=== PATIENT | male | born 1955 | race Two or more races ===

== ENCOUNTER 2020-12-02 15:58 | Emergency (ER) | payer OTHER ==
[~2020-12-02] VITALS: Ht 170.2 cm; Wt 80.3 kg
--- NOTE | 2020-12-02 16:33 | RAD ---
XR SHOULDER_LEFT 2+ VIEWS 12/02/2020 4:18 PM INDICATION: Left shoulder pain after feeling something pop COMPARISON: None available. TECHNIQUE: 3 views of the left shoulder are provided. FINDINGS/ IMPRESSION: There is no acute fracture or dislocation. Joint spaces are maintained. Subcortical cystic change ghislaine ntified along the superolateral humeral head. Bone mineralization is within normal limits. Regional s oft tissues are within normal limits. There is no soft tissue gas or osseous erosion. No radiopaque f oreign body. Electronically signed by: Rossy Hidalgo MD (12/02/2020 4:30 PM) [id number]
[2020-12-02] MEDS ORDERED: NAPR-695 PO (16:42)
--- NOTE | 2020-12-02 16:43 | ED.ADGEN ---
Past Medical History Past Medical History: No Pertinent History Past Surgical History: Other Additional Past Surgical Histo: LEFT ROTATOR CUFF Smoking Status: Never Smoker Alcohol Use: Occasionally General Adult EDM: Chief Complaint: SHOULDER INJURY HPI: HPI: Patient is a 65 year old male who presents emergency department with complaints of left shoulder pain after feeling something pop in his left shoulder when he was putting equipment away at work this afternoon. Patient denies any decreased range of motion, numbness, tingling, or weakness of the affected extremity. He states he is dominantly right-handed. He denies any fever, cough, sore throat, body aches, fatigue, chest pain, palpitations, nausea, vomiting, diarrhea, or abdominal pain. The patient reports that his left arm hurts and that it increases with movement. He currently rates the pain a 5 out of 10 on the pain scale, he denies any alleviating factors. Review of Systems: Review of Systems: Complete ROS is negative unless otherwise noted in HPI. Allergies: Allergies: Allergies Coded Allergies Type Severity Reaction Last Updated Verified No Known Drug Allergies 04/06/14 No Physical Exam: PE: See Above Constitutional: Well developed, well nourished, no acute distress, non-toxic appearance. [] HENT: Normocephalic, atraumatic, bilateral external ears normal, nose normal. [] Eyes: PERRLA, EOMI, conjunctiva normal, no discharge. [] Neck: Normal range of motion, no stridor. [] Cardiovascular:Heart rate regular rhythm Lungs & Thorax: Respirations even and unlabored, no retractions, no respiratory distress Skin: Warm, dry, no erythema, no rash. [] Extremities: Left shoulder: Tenderness to palpation over the AC joint without obvious deformity or crepitus, sensation intact, no cyanosis, ROM intact, no edema. [] Neurologic: Alert and oriented X 3, no focal deficits noted. [] Psychologic: Affect normal, judgement normal, mood normal. [] Current Patient Data: Vital Signs: Vital Signs Date Time Temp Pulse Resp B/P (MAP) Pulse Ox O2 Delivery O2 Flow Rate FiO2 12/02/20 16:03 98.1 66 18 147/82 (103) 97 Room Air 98.1 EKG: EKG: [] Heart Score: Risk Factors: Risk Factors: DM, Current or recent (<one month) smoker, HTN, HLP, family history of CAD, obesity. Risk Scores: Score 0 - 3: 2.5% MACE over next 6 weeks - Discharge Home Score 4 - 6: 20.3% MACE over next 6 weeks - Admit for Clinical Observation Score 7 - 10: 72.7% MACE over next 6 weeks - Early Invasive Strategies Radiology/Procedures: Radiology/Procedures: PROCEDURE: SHOULDER 2+V LEFT XR SHOULDER_LEFT 2+ VIEWS 12/02/2020 4:18 PM INDICATION: Left shoulder pain after feeling something pop COMPARISON: None available. TECHNIQUE: 3 views of the left shoulder are provided. FINDINGS/ IMPRESSION: There is no acute fracture or dislocation. Joint spaces are maintained. Subcortical cystic change identified along the superolateral humeral head. Bone mineralization is within normal limits. Regional soft tissues are within normal limits. There is no soft tissue gas or osseous erosion. No radiopaque foreign body. [] Course & Med Decision Making: Course & Med Decision Making Pertinent Labs and Imaging studies reviewed. (See chart for details) [] Dragon Disclaimer: Dragon Disclaimer: This electronic medical record was generated, in whole or in part, using a voice recognition dictation system. Departure Departure Impression: Primary Impression: Acute pain of left shoulder Disposition: 01 DC HOME SELF CARE/HOMELESS Condition: STABLE Referrals: KAMALA ROBBINS MD Patient Instructions: Shoulder Pain, [id number] Additional Instructions: Fill prescription(s) and use as directed. Recommend application of ice, elevation, and rest of affected extremity. Wear the sling that was placed until follow up appointment with Dr. Robbins, call his office tomorrow to arrange a follow up appointment. Return to the ER if your symptoms worsen. Scripts Naproxen (NAPROXEN) 375 Mg Tablet 1 TAB PO BID for 10 Days, #20 TAB 0 Refills Prov: BARNEY XIONG SIGN LANGUAGE INTERPRETER 12/02/20 BARNEY XIONG SIGN LANGUAGE INTERPRETER Dec 02, 2020 16:43
--- NOTE | 2020-12-02 17:02 | NUR ---
Pt's left arm placed in sling.
[2020-12-02 17:36] VITALS: BP 127/80
[2021-02-01] MEDS ORDERED: OXYC1TAB19 PO (11:13)
== END 2020-12-02 17:19 | disposition home or self-care (01) ==
LOC: EDSEX → ER 15:58
DX: M25.512 Pain in left shoulder (principal); Z98.890 Other specified postprocedural states
CPT/HCPCS: 73030; 99283; A4565

== ENCOUNTER → 2020-12-24 | Outpatient (CLI) | payer OTHER ==
[2020-12-02 17:36] VITALS: BP 127/80
[~2020-12-24] MED LIST: 0.9 % SODIUM CHLORIDE 10 ML DISP.SYRIN. ID ONE; GADOTERATE 5 MMOL/10ML VIAL. INT ART ONE; IOHEXOL 300 MG/ML 50 ML VIAL. INT ART ONE; LIDOCAINE 1% Multi-Dose 20 ML VIAL. ID ONE; NAPR-695 PO; OXYC1TAB19 PO
--- NOTE | 2020-12-24 16:26 | KCIC ---
DG ARTHROGRAM SHOULDER LEFT History: Reason: Lesion superior glenoid labrum, nontraumatic incomplete tear rotator cuff. PROCEDURE: The risks, alternatives, benefits of the procedure discussed with the patient. Written informed cons ent is obtained. A timeout is performed. Skin site was chosen under fluoroscopy. This area is prepped and draped in normal sterile fashion. 1% Lidocaine is used for superficial and deep local anesthesia. Using intermittent fluoroscopy, a 22 -gauge spinal needle is advanced into the joint space. Then a dilute gadolinium solution is instilled , total volume approximately 12 mL. The needle was removed. Hemostasis is achieved. The patient to lerated the procedure well. There is no immediate complication. Patient was transferred to MRI. Total fluoroscopy time 26 seconds. 1 fluoroscopic spot images. IMPRESSION: 1. Fluoroscopically guided left shoulder arthrogram prior to MRI. Electronically signed by: Serge Hammonds DO (12/24/2020 4:24 PM) [id number]
--- NOTE | 2020-12-24 17:24 | KCIC ---
MRI left shoulder arthrogram Clinical indications: Left shoulder pain. TECHNIQUE: After intra-articular injection of gadolinium, post arthrogram MRI sequences of the left swapnil muniz were performed in all 3 planes. An additional ABER sequence was performed. The intra-articula r injection of gadolinium was performed by another radiologist and is dictated under separate report. COMPARISON: Radiographic study of the left shoulder dated December 02, 2020. FINDINGS: There is paramagnetic susceptibility artifact and a surgical tunnel of the lateral aspect o f the humeral head secondary to previous rotator cuff surgery. There is tendinosis and thinning of t he supraspinatus and infraspinatus tendons of the rotator cuff. There is contrast extravasation into the subdeltoid and subacromial bursa related to complete tear of the supraspinatus tendon near the an terior interval. This portion of the tendon is partially undulated and retracted medially. Transverse dimension of the defect is 18 mm. The subscapularis tendon is intact. The intra-articular portion of the tendon of the long of the biceps is not seen. There is a surgical tunnel seen extending from the upper aspect of the bicipital groove into the humeral head. Therefore, a biceps tenodesis has been p erformed. The biceps tendon is seen within the bicipital groove and appears normal otherwise. There i s degenerative osteoarthritis and spurring of the AC joint. Type III acromial process is seen. These findings may impinge the acromial humeral space. Other than postsurgical changes, no marrow infiltrat johnson process is seen. No fracture is seen. There is degenerative subchondral bone marrow edema of the humeral head and glenoid fossa. There is mild degenerative spurring of the glenohumeral joint. There is chondromalacia of the articular cartilage of the humeral head and greater extent the glenoid fossa . No loose body is evident. There is degenerative or postsurgical truncation of the superior glenoid labrum. There is a small chondral labral tear of the inferior glenoid labrum seen best on series 6 an d image 11. No paralabral ganglion cyst or spinoglenoid notch ganglion cyst is seen. IMPRESSION: Complete rotator cuff tear of the anterolateral aspect of the supraspinatus tendon at the anterior interval. Postsurgical or degenerative truncation of the superior glenoid labrum. Small chondral labral tear of the inferior aspect of the glenoid labrum. 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 Mild primary degenerative osteoarthritis of the AC joint. Contrast is seen within this joint space co nsistent with disruption of the inferior acromioclavicular ligament. Electronically signed by: Peter Osorio MD (12/24/2020 5:21 PM) [id number]
== END | disposition home or self-care (01) ==
LOC: EDSEX → KCIC 13:52
PROVIDERS: ATTEND Physician Assistant
DX: M75.102 Unspecified rotator cuff tear or rupture of left shoulder, not specified as traumatic (principal); M25.512 Pain in left shoulder; M19.012 Primary osteoarthritis, left shoulder; M94.212 Chondromalacia, left shoulder; Z79.899 Other long term (current) drug therapy; Z72.89 Other problems related to lifestyle
CPT/HCPCS: 23350; 73222; 77002; A9575; J3490; Q9967; 73040

== ENCOUNTER → 2021-01-28 | Outpatient (CLI) | payer OTHER ==
[~2021-01-28] MED LIST changes: -0.9 % SODIUM CHLORIDE 10 ML DISP.SYRIN. ID ONE; -GADOTERATE 5 MMOL/10ML VIAL. INT ART ONE; -IOHEXOL 300 MG/ML 50 ML VIAL. INT ART ONE; -LIDOCAINE 1% Multi-Dose 20 ML VIAL. ID ONE
== END ==
LOC: LAB 13:47
PROVIDERS: ATTEND Orthopaedic Surgery
DX: Z01.812 Encounter for preprocedural laboratory examination (principal); S46.012D Strain of muscle(s) and tendon(s) of the rotator cuff of left shoulder, subsequent encounter; X58.XXXD Exposure to other specified factors, subsequent encounter; Z20.822 Contact with and (suspected) exposure to COVID-19
CPT/HCPCS: U0003

== ENCOUNTER 2021-02-01 06:55 | Day surgery (SDC) | payer OTHER ==
[~2021-02-01] VITALS: Ht 170.2 cm; Wt 78.9 kg
[~2021-02-01 06:55] MED LIST changes: +HYDROmorphone 2 MG/ML VIAL IVP PRN; +IV RINGERS,LACTATED 1000ML 1,000 ML IV SCH; +MORPHINE SULFATE 2 MG/ML VIAL. IVP PRN; -OXYC1TAB19 PO; +PROCHLORPERAZINE 10 MG/2 ML VIAL. IVP PRN; +fentaNYL PF VIAL 100 MCG/2 ML VIAL IVP PRN
[2021-02-01] MEDS ORDERED: EPINEPHrine VIAL 30 MG/30 ML VIAL ONE (07:29)
[2021-02-01] MEDS ORDERED: BUPIVACAINE MPF 0.5% 30 ML VIAL. ONE (08:52)
[2021-02-01] MEDS ORDERED: MIDAZOLAM HCL/PF 2 MG/2 ML VIAL. ONE (08:52)
[2021-02-01] MEDS ORDERED: GLYCOPYRROLATE 1 MG/5 ML VIAL. ONE (09:18)
[2021-02-01] MEDS ORDERED: LIDOCAINE 2% PF 5 ML VIAL. ONE (09:18)
[2021-02-01] MEDS ORDERED: PROPOFOL 10 MG/ML (20ML) VIAL. IV ONE (09:18)
[2021-02-01] MEDS ORDERED: SEVOFLURANE > 120 MINUTES. IH ONE (09:18)
[2021-02-01] MEDS ORDERED: DEXAMETHASONE SOD PHOS 4 MG/ML VIAL ONE (09:28)
[2021-02-01] MEDS ORDERED: KETOROLAC 30 MG/ML VIAL. ONE (09:28)
[2021-02-01] MEDS ORDERED: ONDANSETRON PF 4 MG/2 ML VIAL. ONE (09:29)
[2021-02-01] MEDS ORDERED: OXYC1TAB19 PO (11:13)
--- NOTE | 2021-02-01 11:15 | DISCH ---
DISCHARGE INSTRUCTIONS Condition on Discharge Condition on Discharge: Stable Activity After Discharge Activity Instructions for Disc: Other, see below (Passive range of motion of operative shoulder only, may use arm with elbow at side for fine motor use such as eating writing and typing) Weight Bearing Status after Di: Non weight bearing Diet after Discharge Diet after Discharge: Regular Wound Incision Care Wound/Incision Care: Change dressing (Remove dressing in 2 days may then shower no soaking until sutures removed) Community/Resources/Services Services at Discharge: PT EVALUATE & TREAT (Prescription written for passive range of motion only for 1 month postop to protect rotator cuff repair) Contacting the after DC Call your doctor for: Concerns you may have Follow-Up Follow up with: Dr. Finnegan 1 week PEEWEE FINNEGAN MD Feb 01, 2021 11:15
[2021-02-01] MEDS ORDERED: oxyCODONE/APAP 7.5/325 1 TAB TABLET PO ONE (11:45)
[2021-02-01 12:20] VITALS: BP 102/76
--- NOTE | 2021-02-01 15:11 | PDOC4 ---
Operative Note Operative Note Date of surgery: 02/01/2021 Preoperative diagnosis: Left shoulder supraspinatus tear Postoperative diagnosis: Same with full-thickness supraspinatus tear and anterior subacromial spur with irritation Operative procedure: Left shoulder arthroscopy arthroscopic rotator cuff repair and subacromial decompression Surgeon: Kain Snaker Driving Horses: Casey Zelaya and Fay Reece certified surgical tech/first assistant Anesthesia: General plus scalene block Estimated blood loss: 5 cc Complications: None Operative indications: Please see my orthopedic clinic note for detailed operative indications and note that I had covered with him the expected findings of a rotator cuff tear and the likely outcome of a arthroscopic rotator cuff repair, the plan to address other pathology as necessary in the shoulder and the risks benefits postoperative course including the possibility of infection nerve or blood vessel damage continued pain nonhealing medical or other anesthetic complications among others all his questions were answered he wishes to proceed with surgical evaluation and treatment. Operative text: Patient was identified procedure verified patient placed in the supine position on the operating table. After adequate amounts of general anesthesia plus a pre-existing scalene block were obtained he was placed decubitus position left side up with the beanbag and all bony prominences were well-padded. Left shoulder was examined under anesthesia found to have full range of motion and no instability. The left shoulder was then prepped and draped in standard sterile fashion and placed in the arthroscopic arm chatman with a total of 10 pounds of traction. After timeout was performed patient procedure identified and verified a standard posterior portal was established an anterior portal established using spinal needle localization and the shoulder joint was systematically examined. Glenohumeral joint cartilage was noted to be intact. He did have a full thickness tear of the supraspinatus which was retracted in a U-shaped and the remainder of the footprint insertion as well as bare area of the humerus were noted to be normal in appearance. He did have some synovitis over the posterior labrum which was likewise debrided back to stable tissue with shaver and bipolar electrocautery. Capsule ligamentous structures were otherwise noted to be normal in appearance. Subacromial space was then entered and bursa was cleared to allow adequate visualization. The full-thickness tear of the supraspinatus and a retracted U-shaped was confirmed and rotator cuff footprint was debrided back to stable tissue and a side to side margin convergence suture was placed with #2 max braid and a double loaded juggernaut anchor with 2 #2 max braid sutures were then placed in a simple fashion beyond the side to side suture for additional reinforcement and lateral row fixation was carried out with a 4.5 mm Quatro link knotless peek anchor. Excellent watertight repair was obtained and examined through all degrees of internal and external rotation. Anterior acromial spur was converted to a type I acromion with an arthroscopic bur with cutting block technique all bony fragments were removed arthroscopic fluid was drained and portals closed with nylon suture. certified first assistant was present for the procedure and assisted in patient positioning prepping draping retraction closure and dressings PEEWEE BAKER MD Feb 01, 2021 15:11
== END 2021-02-01 13:34 | disposition home or self-care (01) ==
LOC: SURG 06:55
PROVIDERS: ATTEND Orthopaedic Surgery
DX: M75.102 Unspecified rotator cuff tear or rupture of left shoulder, not specified as traumatic (principal); Z79.899 Other long term (current) drug therapy; Z98.890 Other specified postprocedural states; Z72.89 Other problems related to lifestyle
CPT/HCPCS: 29826; 29827; 64415; A4565; A4930; C1713; J0171; J0690; J1100; J1885; J2250; J2405; J2704; J3490

== ENCOUNTER 2021-08-09 21:01 | Emergency (ER) | payer OTHER ==
[~2021-08-09] VITALS: Ht 170.2 cm; Wt 79.0 kg
[~2021-08-09 21:01] MED LIST changes: -HYDROmorphone 2 MG/ML VIAL IVP PRN; -IV RINGERS,LACTATED 1000ML 1,000 ML IV SCH; -MORPHINE SULFATE 2 MG/ML VIAL. IVP PRN; +OXYC1TAB19 PO; -PROCHLORPERAZINE 10 MG/2 ML VIAL. IVP PRN; -fentaNYL PF VIAL 100 MCG/2 ML VIAL IVP PRN
[2021-08-09] MEDS ORDERED: MORPHINE SULFATE 4 MG/ML INJ. IVP ONE (23:00)
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
--- NOTE | 2021-08-09 23:13 | RAD ---
EXAMINATION: Right shoulder and right wrist radiograph. VIEWS: 3 views of the right shoulder and 3 views of the right wrist COMPARISON: None INDICATION:66 years, pain, FINDINGS: Right shoulder: No acute fracture or malalignment of the glenohumeral or acromioclavicular joint. Int ra-articular osseous fragments in the acromioclavicular joint. Soft tissues are unremarkable. Visuali zed right hemithorax demonstrates multiple calcified granulomas most pronounced in the infrahilar reg ion. Right wrist: No acute fracture, dislocation or subluxation. There is subchondral sclerosis and margin al osteophytes of the first and second metacarpophalangeal joints and also the first metacarpal phala ngeal joint. Soft tissues are unremarkable. IMPRESSION: 1. No acute osseous injury of the right shoulder. 2. No acute osseous injury of the right wrist. Electronically signed by: Chun Benito DO (08/09/2021 11:11 PM) [facility]
[2021-08-09] MEDS ORDERED: HYDR-2759 PO (23:30)
[2021-08-10] VITALS: BP 139/89
== END 2021-08-10 00:20 | disposition home or self-care (01) ==
LOC: ER 21:01
DX: S60.211A Contusion of right wrist, initial encounter (principal); S70.01XA Contusion of right hip, initial encounter; S40.211A Abrasion of right shoulder, initial encounter; V29.49XA Motorcycle driver injured in collision with other motor vehicles in traffic accident, initial encounter; Y92.488 Other paved roadways as the place of occurrence of the external cause; Y93.89 Activity, other specified; Y99.8 Other external cause status
CPT/HCPCS: 73030; 73110; 96374; 99285; J2270

== ENCOUNTER → 2021-10-04 | Outpatient (CLI) | payer OTHER ==
[~2021-10-04] MED LIST changes: +GADOTERATE 5 MMOL/10ML VIAL. INT ART ONE; +HYDR-2759 PO; +IOHEXOL 300 MG/ML 50 ML VIAL. INT ART ONE; +LIDOCAINE 1% Multi-Dose 20 ML VIAL. ID ONE
--- NOTE | 2021-10-05 08:35 | KCIC ---
Exam Date: 10/04/2021 2:55 PM MRI RIGHT UPPER EXTREMITY JOINT WITH IV CONTRAST Indication: Reason: SLAP TEAR, SEPARATION OF RT ACROMIOCLAVICULAR JOINT / Spl. Instructions: / Histo ry: RIGHT SHOULDER PAIN. MR ARTHROGRAM RIGHT SHOULDER WITH CONTRAST TECHNIQUE: Multiplanar MR imaging of the shoulder was performed following the intra-articular injecti on of both iodinated contrast and dilute gadolinium contrast. The fluorscopic-guided shoulder injec tion procedure is reported separately. FINDINGS: There is abnormal contrast extension into the anterior-inferior labrum consistent with a labral tear. The torn labrum remains attached to the intact periosteum of the glenoid consistent with a Perthes lesion. Long head of the biceps tendon is intact. No full-thickness rotator cuff tendon tear is identified. The supraspinatus, infraspinatus, teres mi nor and subscapularis tendons are intact. Rotator cuff musculature demonstrates normal signal and bu lk. There is elevation of the distal clavicle above the superior margin of the acromion. There is disrup tion of the acromioclavicular ligaments with fluid in the joint space and surrounding soft tissue yonathan ma. Marrow edema consistent with bone contusion is seen in the distal clavicle and acromion. The co racohumeral ligament appears indistinct consistent with a high-grade sprain or tear. Findings are co nsistent with a type II/type III acromioclavicular joint injury. No fracture line is seen. There is an otherwise intact type II acromion. Small fluid or contrast extension is seen in the suba cromial/subdeltoid bursa to suggest bursitis or full-thickness rotator cuff tendon tear. Mild degenerative changes are seen at the glenohumeral joint. IMPRESSION: There is a tear of the anterior-inferior labrum, which remains attached to the intact periosteum of t he glenoid consistent with a Perthes lesion. There is a type II/type III acromioclavicular joint injury with disruption of the acromioclavicular a nd coracohumeral ligaments and bone contusions involving the distal clavicle and acromion. No fractu re line is identified. Intact rotator cuff tendons. Electronically signed by: Regan Reyes MD (10/05/2021 8:32 AM) [id number]
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
== END | disposition home or self-care (01) ==
LOC: KCIC 13:25
PROVIDERS: ATTEND Physician Assistant
DX: S43.431A Superior glenoid labrum lesion of right shoulder, initial encounter (principal); S43.421A Sprain of right rotator cuff capsule, initial encounter; S43.101A Unspecified dislocation of right acromioclavicular joint, initial encounter; M25.511 Pain in right shoulder; Z79.899 Other long term (current) drug therapy; Z72.89 Other problems related to lifestyle; Z98.890 Other specified postprocedural states; X58.XXXA Exposure to other specified factors, initial encounter; Y93.89 Activity, other specified; Y92.89 Other specified places as the place of occurrence of the external cause; Y99.8 Other external cause status
CPT/HCPCS: 23350; 73222; 77002; A9575; J3490; Q9967

== ENCOUNTER 2021-10-28 09:14 | Day surgery (SDC) | payer OTHER ==
[~2021-10-28] VITALS: Ht 170.2 cm; Wt 80.0 kg
[~2021-10-28 09:14] MED LIST changes: -GADOTERATE 5 MMOL/10ML VIAL. INT ART ONE; +HYDROmorphone 2 MG/ML VIAL IVP PRN; +IBUP-1027 PO; -IOHEXOL 300 MG/ML 50 ML VIAL. INT ART ONE; +IV RINGERS,LACTATED 1000ML 1,000 ML IV SCH; -LIDOCAINE 1% Multi-Dose 20 ML VIAL. ID ONE; +LIDOCAINE 1% PF 2 ML VIAL. ONE; +MORPHINE SULFATE 2 MG/ML INJ. IVP PRN; +PROCHLORPERAZINE 10 MG/2 ML VIAL. IVP PRN; +ROPIVacaine 0.5% PF 20 ML VIAL. ONE; +fentaNYL PF VIAL 100 MCG/2 ML VIAL IVP PRN
[2021-10-28] MEDS ORDERED: ROPIVacaine 0.5% PF 20 ML VIAL. ONE (09:22)
[2021-10-28] MEDS ORDERED: GLYCOPYRROLATE 1 MG/5 ML VIAL. ONE (09:22)
[2021-10-28] MEDS ORDERED: ONDANSETRON PF 4 MG/2 ML VIAL. ONE (09:22)
[2021-10-28] MEDS ORDERED: DEXAMETHASONE SOD PHOS 4 MG/ML VIAL ONE (09:22)
[2021-10-28] MEDS ORDERED: PROPOFOL 10 MG/ML (20ML) VIAL. IV ONE (09:22)
[2021-10-28] MEDS ORDERED: LIDOCAINE 2% PF 5 ML VIAL. ONE (09:22)
[2021-10-28] MEDS ORDERED: fentaNYL PF VIAL 100 MCG/2 ML VIAL ONE (09:23)
[2021-10-28] MEDS ORDERED: SUCCINYLCHOLINE 200 MG/10 ML VIAL. ONE (09:23)
[2021-10-28] MEDS ORDERED: ROCURONIUM 100 MG/10 ML VIAL. ONE (09:23)
[2021-10-28] MEDS ORDERED: NEOSTIGMINE METHYLSULFATE 5 MG/5 ML SYRINGE. ONE (09:24)
[2021-10-28] MEDS ORDERED: MIDAZOLAM HCL/PF 2 MG/2 ML VIAL. ONE ×2 (09:24→10:10)
[2021-10-28] MEDS ORDERED: ROCURONIUM 50 MG/5 ML VIAL. ONE (09:28)
[2021-10-28 09:44] VITALS: BP 112/76
[2021-10-28] MEDS ORDERED: EPINEPHrine 1 MG/ML VIAL ONE (10:48)
[2021-10-28] MEDS ORDERED: EPINEPHrine VIAL 30 MG/30 ML VIAL ONE (10:57)
[2021-10-28] MEDS ORDERED: IBUP-1060 PO (11:57)
--- NOTE | 2021-10-28 11:59 | DISCH ---
DISCHARGE INSTRUCTIONS Condition on Discharge Condition on Discharge: Stable Activity After Discharge Activity Instructions for Disc: Activity as tolerated, Avoid exertion, Other, see below Lifting Instructions after Dis: Do not lift >10 pounds Driving Instructions after Dis: Do not drive today Weight Bearing Status after Di: Non weight bearing Diet after Discharge Diet after Discharge: Regular Wound Incision Care Wound/Incision Care: Ice to area for comfort, Change dressing Other wound/incision instructi: May change dressings postoperative day #3 Contacting the DRCameron after DC Call your doctor for: Concerns you may have Follow-Up Follow up with: 10 to 14 days JEANETH MORRIS Jr. DO Oct 28, 2021 11:59
--- NOTE | 2021-10-28 12:01 | PDOC4 ---
OPERATIVE NOTE Date: Date: Oct 28, 2021 Pre-Op Diagnosis: Labral tear impingement AC arthrosis right shoulder Post-Op Diagnosis: Impingement AC arthrosis with grade 4 degenerative joint disease humeral head right shoulder Procedure Performed: Right shoulder arthroscopy with debridement humeral head subacromial decompression distal clavicle resection release CA ligament bursectomy Surgeon: Sridhar Anesthesia Type: General Blood Loss: 20 cc Specimans Obtained: None Findings: See dictation Complications: None JEANETH MORRIS Jr. DO Oct 28, 2021 12:01
--- NOTE | 2021-10-28 12:13 | OP ---
DATE OF SURGERY: 10/28/2021 PREOPERATIVE DIAGNOSES: Labral tear with impingement, acromioclavicular arthrosis right shoulder. POSTOPERATIVE DIAGNOSES: Impingement, acromioclavicular arthrosis right shoulder with significant bursitis and bursal tearing, grade 4 degenerative joint disease humeral head. PROCEDURES: Right shoulder arthroscopy with release of CA ligament, subacromial decompression, distal clavicle resection, bursectomy. SURGEON: Vernon Waller Jr, DO [employer] C[employer]ER SERVICE AGENT: Casey Zelaya. ANESTHESIA: General. COMPLICATIONS: None. ESTIMATED BLOOD LOSS: 20 mL DESCRIPTION OF PROCEDURE: The patient was taken to the operative suite, given a general anesthetic. Under anesthesia, range of motion was within normal limits. After the right shoulder was prepped and draped in a sterile fashion, a standard posterior portal was established. The glenohumeral joint was visualized. There was noted to be significant and severe degenerative changes of the humeral head, grade 4 throughout a significant amount of that. The glenoid was noted to be intact grossly, but with some micro fracturing at this point. There was no labral tear with probing of the entire periphery of this and the biceps tendon was completely intact and stable without any fraying or tearing at this point. Scope was then taken into the subacromial region. There was an extremely large anterior downsloping of the acromion and an osteophyte with calcification of the CA ligament; therefore, the remainder of the ligament was released and a subacromial decompression was performed, which elevated this quite significantly. The bursectomy was completed through this area of the cuff looked intact from the side of the joint as well. Therefore, the scope was visualized in the AC joint, which had significant degenerative changes. Therefore, redirected anterior portal, also removed osteophytes from the underside of the AC joint itself as well as a portion of the distal clavicle and then complete inspection of the rotator cuff appeared to be completely intact at this point. This was then thoroughly irrigated and suctioned dry. All instruments were removed. The wounds were reapproximated. Sterile dressing was applied. The patient was then taken from the operative bed to the postoperative bed, taken to PACU in stable condition. PAM DR: Ignacio TID: [id number]
[2021-10-28] MEDS ORDERED: IBUPROFEN 200 MG TABLET. PO ONE (12:40)
[2021-10-28] MEDS ORDERED: IBUPROFEN 400 MG TABLET. PO ONE (12:45)
[2021-10-28 12:53] VITALS: BP 126/80
== END 2021-10-28 13:34 | disposition home or self-care (01) ==
LOC: SURG 09:14
PROVIDERS: ATTEND Orthopaedic Surgery
DX: M19.011 Primary osteoarthritis, right shoulder (principal); M75.51 Bursitis of right shoulder; Z79.899 Other long term (current) drug therapy; Z98.890 Other specified postprocedural states; Z72.89 Other problems related to lifestyle
CPT/HCPCS: 29824; 29826; A4565; A4928; A4930; J0171; J0330; J0690; J1100; J2250; J2405; J2704; J2710; J2795; J3010; J3490; A4223